=== PATIENT | male | born 1950 | race Caucasian/White ===

== ENCOUNTER 2021-09-01 23:29 | Inpatient (IN) | payer MEDICARE ==
[~2021-09-01] VITALS: Ht 172.7 cm; Wt 50.4 kg
[2021-09-02] MEDS ORDERED: ALBUTEROL (0.083%) 2.5MG/3ML NEB HHN STA (01:17)
[2021-09-02] MEDS ORDERED: IPRATROPIUM BROMIDE (0.02%) 0.5MG/2.5ML NEB HHN STA (01:17)
[2021-09-02] MEDS ORDERED: PREDNISONE 20MG TABLET PO STA (01:17)
[2021-09-02 01:34] LABS: HEMATOCRIT. 42.4 % (42.0-52.0); HEMOGLOBIN. 14.3 g/dL (14.0-18.0); MEAN CORPUSCULAR HEMOGLOBIN 28.1 pg (28.0-32.0); MEAN CORPUSCULAR VOLUME 83.1 fL (80.0-94.0); MEAN PLATELET VOLUME 8.4 fl (7.4-10.4); PLATELET 293 x1000/uL (130-400)
[2021-09-02 01:40] LABS: CHLORIDE 102 mEq/L (98-107)
[2021-09-02] MEDS ORDERED: LORAZEPAM 2MG/ML CPJ IV ONE (03:00)
[2021-09-02] MEDS ORDERED: HALOPERIDOL LACTATE 5MG/ML VIAL IM ONE (03:00)
[2021-09-02] MEDS ORDERED: DIPHENHYDRAMINE 50MG/ML VIAL IV ONE (03:00)
[2021-09-02 03:14] LABS: PLATELET ESTIMATE NORMAL
[2021-09-02 03:23] LABS: CLARITY URINE CLEAR (CLEAR); COLOR URINE YELLOW (YELLOW); KETONES URINE TRACE (NEGATIVE); LEUKOCYTE ESTERASE URINE NEGATIVE (NEGATIVE); NITRITE URINE NEGATIVE (NEGATIVE); OCCULT BLOOD URINE NEGATIVE (NEGATIVE); PROTEIN URINE 2+ (NEGATIVE); SPECIFIC GRAVITY URINE 1.023 (1.005-1.030)
[2021-09-02] MEDS ORDERED: SODIUM CHLORIDE 0.9% 500 ML IV ONE (05:30)
[2021-09-02] MEDS ORDERED: ONDANSETRON HCL 4MG/2ML INJ IV PRN (07:30)
[2021-09-02] MEDS ORDERED: ACETAMINOPHEN 325MG TABLET PO PRN (07:30)
[2021-09-02] MEDS ORDERED: MAGNESIUM/ALUMINUM HYDROXIDE/SIMETHICONE 30ML UDC PO PRN (07:30)
[2021-09-02] MEDS ORDERED: DOCUSATE SODIUM 100MG CAPSULE PO PRN (07:30)
[2021-09-02] MEDS ORDERED: HYDRALAZINE 20MG/ML VIAL IV PRN (07:30)
[2021-09-02] MEDS ORDERED: CLONIDINE 0.1MG TABLET PO PRN (07:30)
[2021-09-02] MEDS ORDERED: MORPHINE SULFATE 2 MG/ML CPJ (NOT FOR IM USE) IV PRN (07:30)
[2021-09-02] MEDS ORDERED: IPRATROPIUM/ALBUTEROL 0.5-3(2.5)MG/3ML NEB HHN PRN (07:30)
[2021-09-02] MEDS ORDERED: HYDROCODONE/ACETAMINOPHEN 5/325MG TABLET PO PRN (07:30)
[2021-09-02] MEDS ORDERED: GUAIFENESIN 200MG/10ML SUGAR FREE UDC PO PRN (07:30)
[2021-09-02] MEDS ORDERED: NALOXONE HCL 0.4MG/ML VIAL IV PRN (07:45)
[2021-09-02] MEDS: ENOXAPARIN 40MG/0.4ML SYR SUBCUT SCH (09:23)
[2021-09-02 11:03] LABS: BG BASE EXCESS 5.4 mmol/L (-2.0-2.0); BG CARBOXYHEMOGLOBIN 0.9 % (0.5-1.5); BG DEOXYHEMOGLOBIN 1.2 % (0.0-5.0); BG FRACTION INSPIRED OXYGEN 32; BG METHEMOGLOBIN 0.5 % (0.0-1.5); BG OXYGEN SATURATION 98.8 % (92.0-98.5); BG OXYHEMOGLOBIN 97.4 % (94.0-97.0); BG PCO2 67.9 mmHg (35.0-45.0); BG PH 7.317 (7.350-7.450); BG PO2 144.6 mmHg (75.0-100.0); BG SAMPLE SITE LEFT RADIAL; BG TOTAL HEMOGLOBIN 14.8 g/dL (12.0-18.0); BG VENT MODE NASAL CANNULA
[2021-09-02] MEDS: DEXT 5%/0.45% NACL 1000ML 1,000 ML IV SCH (11:25)
[2021-09-02] MEDS: SODIUM CHLORIDE 0.9% INJ 3ML FLUSH IVF SCH ×2 (14:00→22:59)
[2021-09-02 16:54] LABS: CREATINE KINASE 292 IU/L (39-308); CREATINE KINASE MB FRACTION 5.1 ng/mL (0.5-3.6)
[2021-09-02] MEDS: LORAZEPAM 2MG/ML CPJ IV PRN (18:59)
[2021-09-02 22:58] LABS: *AMPHETAMINES SCREEN URINE NEGATIVE (NEGATIVE)
[2021-09-02 22:59] LABS: *BARBITURATES SCREEN URINE NEGATIVE (NEGATIVE); *BENZODIAZEPINES SCREEN URINE NEGATIVE (NEGATIVE); *COCAINE SCREEN URINE NEGATIVE (NEGATIVE); CANNABINOID URINE SCREEN PRESUMTIVE POSITIVE (NEGATIVE); METHADONE URINE SCREEN NEGATIVE (NEGATIVE); OPIATES URINE SCREEN NEGATIVE (NEGATIVE); PHENCYCLIDINE URINE SCREEN NEGATIVE (NEGATIVE)
[2021-09-02 23:31] LABS: CREATINE KINASE 294 IU/L (39-308)
[2021-09-02 23:32] LABS: CREATINE KINASE MB FRACTION 4.9 ng/mL (0.5-3.6)
[2021-09-03] VITALS (13 sets, daily range): BP systolic 98–141; BP diastolic 49–90
[2021-09-03] MEDS: SODIUM CHLORIDE 0.9% INJ 3ML FLUSH IVF SCH ×3 (05:22→20:32)
[2021-09-03 07:17] LABS: BASOPHILS % 0.4 % (0.0-2.0); EOSINOPHILS % 1.1 % (0.0-5.0); HEMATOCRIT. 46.4 % (42.0-52.0); HEMOGLOBIN. 14.6 g/dL (14.0-18.0); LYMPHOCYTES % 18.2 % (20.0-50.0); MEAN CORPUSCULAR HEMOGLOBIN 26.9 pg (28.0-32.0); MEAN CORPUSCULAR VOLUME 85.8 fL (80.0-94.0); MEAN PLATELET VOLUME 9.5 fl (7.4-10.4); MONOCYTES % 10.5 % (2.0-8.0); NEUTROPHILS % 69.8 % (40.0-76.0); PLATELET 293 x1000/uL (130-400); RED BLOOD CELL COUNT 5.41 mill/uL (4.7-6.1); RED CELL DISTRIBUTION WIDTH 15.1 % (11.6-14.6)
[2021-09-03 07:49] LABS: CHLORIDE 102 mEq/L (98-107)
[2021-09-03 08:20] LABS: VITAMIN B12 SERUM 552 pg/mL (211-911)
[2021-09-03] MEDS: ENOXAPARIN 40MG/0.4ML SYR SUBCUT SCH (09:00)
[2021-09-03] MEDS: DEXT 5%/0.45% NACL 1000ML 1,000 ML IV SCH (13:00)
[2021-09-03] MEDS: LORAZEPAM 2MG/ML CPJ IV PRN ×2 (15:00→20:31)
[2021-09-03] MEDS: DIPHENHYDRAMINE 50MG/ML VIAL IV PRN ×2 (15:01→20:31)
[2021-09-03] MEDS: MEMANTINE HCL 5MG TABLET PO SCH (20:31)
[2021-09-04] VITALS (13 sets, daily range): BP systolic 116–174; BP diastolic 58–96
[2021-09-04] MEDS: LORAZEPAM 2MG/ML CPJ IV PRN ×2 (00:49→16:44)
[2021-09-04] MEDS: DIPHENHYDRAMINE 50MG/ML VIAL IV PRN ×2 (00:49→23:57)
[2021-09-04] MEDS: SODIUM CHLORIDE 0.9% INJ 3ML FLUSH IVF SCH ×2 (05:49→21:42)
[2021-09-04 07:13] LABS: BASOPHILS % 0.4 % (0.0-2.0); EOSINOPHILS % 4.1 % (0.0-5.0); HEMATOCRIT. 44.7 % (42.0-52.0); HEMOGLOBIN. 14.5 g/dL (14.0-18.0); LYMPHOCYTES % 16.8 % (20.0-50.0); MEAN CORPUSCULAR HEMOGLOBIN 27.6 pg (28.0-32.0); MEAN CORPUSCULAR VOLUME 85.3 fL (80.0-94.0); NEUTROPHILS % 66.7 % (40.0-76.0); PLATELET 256 x1000/uL (130-400); RED BLOOD CELL COUNT 5.25 mill/uL (4.7-6.1); RED CELL DISTRIBUTION WIDTH 15.1 % (11.6-14.6)
[2021-09-04 07:52] LABS: CHLORIDE 101 mEq/L (98-107)
[2021-09-04] MEDS: DEXT 5%/0.45% NACL 1000ML 1,000 ML IV SCH (10:00)
[2021-09-04 10:03] LABS: BG BASE EXCESS 8.8 mmol/L (-2.0-2.0); BG CARBOXYHEMOGLOBIN 1.2 % (0.5-1.5); BG DEOXYHEMOGLOBIN 1.9 % (0.0-5.0); BG FRACTION INSPIRED OXYGEN 32; BG HCO3 ACT 38.3 mmol/L (22.0-26.0); BG METHEMOGLOBIN 0.2 % (0.0-1.5); BG OXYGEN SATURATION 98.1 % (92.0-98.5); BG OXYHEMOGLOBIN 96.7 % (94.0-97.0); BG PCO2 76.3 mmHg (35.0-45.0); BG PH 7.319 (7.350-7.450); BG PO2 109.9 mmHg (75.0-100.0); BG SAMPLE SITE LEFT BRACHIAL; BG TOTAL HEMOGLOBIN 15.1 g/dL (12.0-18.0); BG VENT MODE NASAL CANNULA
[2021-09-04] MEDS: MEMANTINE HCL 5MG TABLET PO SCH ×2 (10:58→21:42)
[2021-09-04] MEDS: ENOXAPARIN 30MG/0.3ML SYR SUBCUT SCH (11:00)
[2021-09-04] MEDS ORDERED: IPRATROPIUM/ALBUTEROL 0.5-3(2.5)MG/3ML NEB HHN PRN (11:15)
[2021-09-04] MEDS ORDERED: OLANZAPINE 5MG TABLET PO NR (14:30)
[2021-09-04] MEDS: BUDESONIDE 0.5MG/2ML NEB HHN SCH ×2 (17:01→20:21)
[2021-09-04] MEDS: IPRATROPIUM/ALBUTEROL 0.5-3(2.5)MG/3ML NEB HHN SCH ×2 (17:01→20:21)
[2021-09-04] MEDS: RISPERIDONE 0.5MG TABLET PO SCH (21:42)
[2021-09-05] VITALS (12 sets, daily range): BP systolic 106–152; BP diastolic 7–93
[2021-09-05] MEDS: IPRATROPIUM/ALBUTEROL 0.5-3(2.5)MG/3ML NEB HHN SCH ×6 (00:57→22:33)
[2021-09-05] MEDS: SODIUM CHLORIDE 0.9% INJ 3ML FLUSH IVF SCH ×3 (06:00→22:17)
[2021-09-05 06:59] LABS: CHLORIDE 100 mEq/L (98-107)
[2021-09-05 07:16] LABS: BASOPHILS % 0.5 % (0.0-2.0); EOSINOPHILS % 2.8 % (0.0-5.0); HEMATOCRIT. 42.6 % (42.0-52.0); HEMOGLOBIN. 13.7 g/dL (14.0-18.0); LYMPHOCYTES % 13.6 % (20.0-50.0); MEAN CORPUSCULAR HEMOGLOBIN 27.6 pg (28.0-32.0); MEAN CORPUSCULAR VOLUME 85.5 fL (80.0-94.0); MEAN PLATELET VOLUME 9.1 fl (7.4-10.4); MONOCYTES % 12.6 % (2.0-8.0); NEUTROPHILS % 70.5 % (40.0-76.0); PLATELET 250 x1000/uL (130-400); RED BLOOD CELL COUNT 4.98 mill/uL (4.7-6.1); RED CELL DISTRIBUTION WIDTH 14.9 % (11.6-14.6)
[2021-09-05] MEDS: BUDESONIDE 0.5MG/2ML NEB HHN SCH ×2 (08:07→22:33)
[2021-09-05] MEDS: RISPERIDONE 0.5MG TABLET PO SCH ×2 (08:35→20:33)
[2021-09-05] MEDS: ENOXAPARIN 30MG/0.3ML SYR SUBCUT SCH (08:35)
[2021-09-05] MEDS: MEMANTINE HCL 5MG TABLET PO SCH ×2 (08:35→20:33)
[2021-09-05] MEDS: MULTIVITAMINS,THER W-MINERALS TABLET PO SCH (08:35)
[2021-09-05 11:35] LABS: BG BASE EXCESS 11.3 mmol/L (-2.0-2.0); BG DEOXYHEMOGLOBIN 5.9 % (0.0-5.0); BG FRACTION INSPIRED OXYGEN 28; BG METHEMOGLOBIN 0.3 % (0.0-1.5); BG OXYHEMOGLOBIN 92.8 % (94.0-97.0); BG PCO2 64.5 mmHg (35.0-45.0); BG PH 7.399 (7.350-7.450); BG PO2 66.9 mmHg (75.0-100.0); BG SAMPLE SITE LEFT BRACHIAL; BG TOTAL HEMOGLOBIN 14.4 g/dL (12.0-18.0); BG TOTAL RESPIRATORY RATE 21 b/min; BG VENT MODE MASK - BIPAP
[2021-09-05] MEDS: DEXT 5%/0.45% NACL 1000ML 1,000 ML IV SCH (14:48)
[2021-09-05] MEDS: DIPHENHYDRAMINE 50MG/ML VIAL IV PRN ×2 (16:07→20:32)
[2021-09-05] MEDS: MIRTAZAPINE 15MG TABLET PO SCH (20:32)
[2021-09-05] MEDS: HALOPERIDOL 5MG TABLET PO PRN (22:17)
[2021-09-06] VITALS (12 sets, daily range): BP systolic 108–172; BP diastolic 59–95
[2021-09-06] MEDS: IPRATROPIUM/ALBUTEROL 0.5-3(2.5)MG/3ML NEB HHN SCH ×3 (01:30→21:33)
[2021-09-06] MEDS: DIPHENHYDRAMINE 50MG/ML VIAL IV PRN ×4 (02:05→23:22)
[2021-09-06] MEDS: SODIUM CHLORIDE 0.9% INJ 3ML FLUSH IVF SCH ×3 (05:43→22:59)
[2021-09-06] MEDS: RISPERIDONE 0.5MG TABLET PO SCH ×2 (08:04→20:30)
[2021-09-06] MEDS: MEMANTINE HCL 5MG TABLET PO SCH ×2 (08:04→20:31)
[2021-09-06] MEDS: MULTIVITAMINS,THER W-MINERALS TABLET PO SCH (08:04)
[2021-09-06] MEDS: ENOXAPARIN 30MG/0.3ML SYR SUBCUT SCH (08:04)
[2021-09-06] MEDS: DEXT 5%/0.45% NACL 1000ML 1,000 ML IV SCH (10:00)
[2021-09-06] MEDS: HALOPERIDOL 5MG TABLET PO PRN (12:07)
[2021-09-06] MEDS: MIRTAZAPINE 15MG TABLET PO SCH (20:31)
[2021-09-06] MEDS: LORAZEPAM 2MG/ML CPJ IV PRN (20:32)
[2021-09-06] MEDS: BUDESONIDE 0.5MG/2ML NEB HHN SCH (21:33)
[2021-09-07] VITALS (11 sets, daily range): BP systolic 95–150; BP diastolic 65–94
[2021-09-07] MEDS: IPRATROPIUM/ALBUTEROL 0.5-3(2.5)MG/3ML NEB HHN SCH ×5 (03:35→19:59)
[2021-09-07] MEDS: DIPHENHYDRAMINE 50MG/ML VIAL IV PRN ×2 (05:08→20:19)
[2021-09-07] MEDS: SODIUM CHLORIDE 0.9% INJ 3ML FLUSH IVF SCH ×3 (05:08→21:00)
[2021-09-07] MEDS: BUDESONIDE 0.5MG/2ML NEB HHN SCH (07:55)
[2021-09-07] MEDS: ENOXAPARIN 30MG/0.3ML SYR SUBCUT SCH (08:14)
[2021-09-07] MEDS: MEMANTINE HCL 5MG TABLET PO SCH ×2 (08:14→20:19)
[2021-09-07] MEDS: MULTIVITAMINS,THER W-MINERALS TABLET PO SCH (08:14)
[2021-09-07] MEDS: RISPERIDONE 0.5MG TABLET PO SCH ×2 (08:14→20:19)
[2021-09-07 09:31] LABS: BG BASE EXCESS 10.6 mmol/L (-2.0-2.0); BG CARBOXYHEMOGLOBIN 0.8 % (0.5-1.5); BG DEOXYHEMOGLOBIN 1.2 % (0.0-5.0); BG FRACTION INSPIRED OXYGEN 28; BG METHEMOGLOBIN 0.4 % (0.0-1.5); BG OXYGEN SATURATION 98.8 % (92.0-98.5); BG OXYHEMOGLOBIN 97.6 % (94.0-97.0); BG PCO2 63.7 mmHg (35.0-45.0); BG PH 7.394 (7.350-7.450); BG PO2 127.6 mmHg (75.0-100.0); BG SAMPLE SITE RIGHT BRACHIAL; BG TOTAL HEMOGLOBIN 13.5 g/dL (12.0-18.0); BG VENT MODE NASAL CANNULA
[2021-09-07] MEDS: DEXT 5%/0.45% NACL 1000ML 1,000 ML IV SCH (10:00)
[2021-09-07] MEDS: MIRTAZAPINE 15MG TABLET PO SCH (20:19)
[2021-09-08] VITALS (12 sets, daily range): BP systolic 112–149; BP diastolic 72–98
[2021-09-08] MEDS: IPRATROPIUM/ALBUTEROL 0.5-3(2.5)MG/3ML NEB HHN SCH ×7 (00:07→23:25)
[2021-09-08] MEDS: DIPHENHYDRAMINE 50MG/ML VIAL IV PRN ×2 (02:18→20:08)
[2021-09-08] MEDS: SODIUM CHLORIDE 0.9% INJ 3ML FLUSH IVF SCH ×3 (05:13→21:56)
[2021-09-08] MEDS: MULTIVITAMINS,THER W-MINERALS TABLET PO SCH (08:54)
[2021-09-08] MEDS: MEMANTINE HCL 5MG TABLET PO SCH ×2 (08:54→20:08)
[2021-09-08] MEDS: RISPERIDONE 0.5MG TABLET PO SCH ×2 (08:54→20:07)
[2021-09-08] MEDS: ENOXAPARIN 30MG/0.3ML SYR SUBCUT SCH (08:55)
[2021-09-08] MEDS: DEXT 5%/0.45% NACL 1000ML 1,000 ML IV SCH (10:07)
[2021-09-08] MEDS: MIRTAZAPINE 15MG TABLET PO SCH (20:07)
[2021-09-08] MEDS: HALOPERIDOL 5MG TABLET PO PRN (20:07)
[2021-09-08] MEDS: LORAZEPAM 2MG/ML CPJ IM PRN (23:59)
[2021-09-09] VITALS (13 sets, daily range): BP systolic 102–156; BP diastolic 63–90
[2021-09-09] MEDS: DIPHENHYDRAMINE 50MG/ML VIAL IV PRN ×2 (01:22→05:46)
[2021-09-09] MEDS: IPRATROPIUM/ALBUTEROL 0.5-3(2.5)MG/3ML NEB HHN SCH ×5 (02:20→21:46)
[2021-09-09] MEDS: SODIUM CHLORIDE 0.9% INJ 3ML FLUSH IVF SCH ×3 (05:10→22:41)
[2021-09-09] MEDS: LORAZEPAM 2MG/ML CPJ IM PRN ×2 (05:46→11:45)
[2021-09-09] MEDS: MULTIVITAMINS,THER W-MINERALS TABLET PO SCH (09:28)
[2021-09-09] MEDS: MEMANTINE HCL 5MG TABLET PO SCH ×2 (09:28→22:40)
[2021-09-09] MEDS: RISPERIDONE 0.5MG TABLET PO SCH ×2 (09:28→22:40)
[2021-09-09] MEDS: ENOXAPARIN 30MG/0.3ML SYR SUBCUT SCH (09:28)
[2021-09-09] MEDS: DEXT 5%/0.45% NACL 1000ML 1,000 ML IV SCH (09:29)
[2021-09-09] MEDS ORDERED: MIRTAZAPINE 15MG TABLET PO SCH (21:00)
[2021-09-10] VITALS (11 sets, daily range): BP systolic 99–163; BP diastolic 62–98
[2021-09-10] MEDS: IPRATROPIUM/ALBUTEROL 0.5-3(2.5)MG/3ML NEB HHN SCH ×4 (01:47→12:02)
[2021-09-10] MEDS: SODIUM CHLORIDE 0.9% INJ 3ML FLUSH IVF SCH ×2 (06:48→14:00)
[2021-09-10] MEDS: DEXT 5%/0.45% NACL 1000ML 1,000 ML IV SCH (09:58)
[2021-09-10] MEDS: ENOXAPARIN 30MG/0.3ML SYR SUBCUT SCH (09:58)
[2021-09-10] MEDS: MULTIVITAMINS,THER W-MINERALS TABLET PO SCH (09:58)
[2021-09-10] MEDS: RISPERIDONE 0.5MG TABLET PO SCH (09:58)
[2021-09-10] MEDS: MEMANTINE HCL 5MG TABLET PO SCH (09:58)
== END 2021-09-10 15:00 | DRG 70 ==
LOC: ER 23:29 → 3WST 09-02 05:47 → ENRESERV 09-02 22:10 → CANRESERV 09-02 22:10 → ENRESERV 09-02 22:32 → 3WST 09-05 16:52
PROVIDERS: ADMIT Internal Medicine; ATTEND Internal Medicine
PROC: 5A09357 Assistance with Respiratory Ventilation, Less than 24 Consecutive Hours, Continuous Positive Airway Pressure (ICD-10-PCS; 2021-09-04)
PROC: 5A09357 Assistance with Respiratory Ventilation, Less than 24 Consecutive Hours, Continuous Positive Airway Pressure (ICD-10-PCS; principal; 2021-09-05)
PROC: 5A09357 Assistance with Respiratory Ventilation, Less than 24 Consecutive Hours, Continuous Positive Airway Pressure (ICD-10-PCS; 2021-09-07)
PROC: 5A09357 Assistance with Respiratory Ventilation, Less than 24 Consecutive Hours, Continuous Positive Airway Pressure (ICD-10-PCS; 2021-09-08)
PROC: 5A09357 Assistance with Respiratory Ventilation, Less than 24 Consecutive Hours, Continuous Positive Airway Pressure (ICD-10-PCS; 2021-09-10)
DX: G93.40 Encephalopathy, unspecified (principal); J96.02 Acute respiratory failure with hypercapnia; J44.1 Chronic obstructive pulmonary disease with (acute) exacerbation; I10 Essential (primary) hypertension; R62.7 Adult failure to thrive; E11.9 Type 2 diabetes mellitus without complications; E78.5 Hyperlipidemia, unspecified; F03.90 Unspecified dementia, unspecified severity, without behavioral disturbance, psychotic disturbance, mood disturbance, and anxiety; I35.0 Nonrheumatic aortic (valve) stenosis; F17.210 Nicotine dependence, cigarettes, uncomplicated; I35.1 Nonrheumatic aortic (valve) insufficiency; Z20.822 Contact with and (suspected) exposure to COVID-19; Z81.8 Family history of other mental and behavioral disorders
CPT/HCPCS: 36415; 36600; 70551; 71045; 80048; 80053; 80305; 81003; 82375; 82550; 82553; 82607; 82805; 82962; 83880; 84443; 84484; 85025; 87426; 92610; 93005; 93306; 93970; 94640; 94660; 95816; 96361; 96372; 96374; 96375; 97161; 99285; C1893; J1200; J1630; J1650; J2060; J7040; J7070; J7512; J7626; A4315